=== PATIENT | female | born 1980 | race Caucasian/White ===

== ENCOUNTER 2020-07-16 12:38 | Emergency (ER) | payer BC ==
[~2020-07-16] VITALS: Ht 154.9 cm; Wt 54.0 kg
[2020-07-16 12:47] VITALS: Ht 154.9 cm; Wt 54.0 kg
[2020-07-16 13:19] LABS: BASOPHIL % 0.4 % (0-2); PLATELET COUNT 300 x10^3mcL (130-400); RED CELL DISTRIBUTION WIDTH 14.2 % (11.5-14.5)
[2020-07-16 13:47] LABS: CALCIUM 9.3 mg/dL (8.5-10.1); CARBON DIOXIDE 24.2 mmol/L (21-32); CHLORIDE SERUM 96 mmol/L (98-107); CREATININE SERUM 0.7 mg/dL (0.6-1.0); GFR1 > 60 mL/min; GLUCOSE SERUM 109 mg/dL (74-106); POTASSIUM SERUM 3.6 mmol/L (3.5-5.1); SODIUM SERUM 132 mmol/L (136-145)
[2020-07-16 13:52] LABS: ALBUMIN 4.8 g/dL (3.4-5.0); ALKALINE PHOSPHATASE 59 U/L (46-116); ALT/SGPT 26 U/L (14-59); AST/SGOT 20 U/L (15-37); BILIRUBIN TOTAL 0.6 mg/dL (0.20-1.00)
[2020-07-16 13:57] LABS: TOTAL PROTEIN, SERUM 8.4 g/dL (6.4-8.2)
[2020-07-16 17:13] VITALS: BP 119/78
== END 2020-07-16 17:13 | disposition home or self-care (01) ==
LOC: ED 12:38
DX: N83.201 Unspecified ovarian cyst, right side (principal)
CPT/HCPCS: 82962; Q9967